=== PATIENT | female | born 1960 | race Caucasian/White ===

== ENCOUNTER 2023-08-30 15:32 | Emergency (ER) | payer OTHER, SELFPAY ==
[2023-08-30] VITALS (8 sets, daily range): BP systolic 136–189; BP diastolic 73–90; PULSE 58–68; RESP 18; TEMP 36.8–37; O2SAT 90–100; BMI 41.8
--- NOTE | 2023-08-30 16:01 | PC.NURSE ---
Pt has 5 laprascopic incisions on her abdomen after suergery 9 days ago. Pt has an area around each incision that is red and warm to touch. Pt also has an area on her left butt cheek that is red from a reaction to the soap they used for sugery.
--- NOTE | 2023-08-30 16:15 | ED.WOUNDLAC ---
HPI - Wound/Laceration General Chief Complaint: Wound/Laceration Stated Complaint: post marla T-9 wounds open/ abd area Time Seen by Provider: 08/30/23 15:56 History of Present Illness HPI narrative: Patient drove self here. Patient is postop day 9 status post urology/gynecological bladder surgery at [facility]. Patient complains of swelling to the incision sites with redness. Patient has had knee surgery before and no reactions to the incision sites on her knees. Patient is having good urinary and bowel function. She also has a wound to the left gluteal area. That was noticed after her surgery. Patient describes what sounds like cystocele surgery. She also had lysis of adhesions with the colon. Patient noticed these red fernandez over the incision sites about 3 days postop. Has not tried any medications for this. She is driving. She is allergic to contrast dye, I did offer IV contrast with Benadryl and Solu-Medrol but she declined because she is driving. Related Data Previous Rx's Medication Instructions Recorded doxycycline hyclate 100 mg capsule 100 mg PO BID #14 caps 08/30/23 Review of Systems Review of Systems Narrative: GENERAL: negative chills, fatigue, malaise, fever, sweats. HEENT: negative sinus pain, ear pain, sore throat RESPIRATORY: negative dyspnea, cough CARDIOVASCULAR: negative chest pain, palpitations GASTROINTESTINAL: negative nausea, vomiting, abdominal pain : negative dysuria, frequency, hematuria MUSCULOSKELETAL: negative muscle or bony pain SKIN: Positive rash, skin lesions NEUROLOGIC: negative weakness, numbness ROS Unobtainable: All systems reviewed & are unremarkable except as noted in HPI and below Patient History Social History Smoking Status: Never smoker Smoking Status: Never smoker alcohol intake frequency: 0-2 drinks per day Substance Use Type: does not use Exam Narrative Exam Narrative: GENERAL: in no distress, not toxic not dyspneic HEAD: Normocephalic. EYES: Pupils equal round GASTROINTESTINAL: Abdomen soft, mild tenderness to the incisional site. There are 5 of them. They are dry. No Steri-Strips overlying these incisions. At the right side there is incision that is clean and dry but has surrounding erythema edema and slightly more elevated than the rest. All of them do have erythema. No fluctuance. On the left gluteus there is an area 4 cm in diameter that is erythematous and appears to be slightly scabbed over. Possibly a contact dermatitis event that occurred intraoperatively. EXTREMITIES: No gross deformities. BACK: No flank tenderness. NEURO: AOx4. Clear speech SKIN: Warm and dry PSYCH: Not anxious, is cooperative Initial Vital Signs Initial Vital Signs: Vital Signs Temperature 98.3 F 08/30/23 15:37 Pulse Rate 66 08/30/23 15:37 Respiratory Rate 18 08/30/23 15:37 Blood Pressure 189/90 H 08/30/23 15:37 Pulse Oximetry 100 08/30/23 15:37 Oxygen Delivery Method Room Air 08/30/23 15:37 Course Orders Ordered: Discontinued Medications Doxycycline Hyclate (Doxycycline Hyclate 100 Mg Tablet) 100 mg PO NOW ONE Stop: 08/30/23 17:27 Last Admin: 08/30/23 17:39 Dose: 100 mg Documented By: CHUN Vital Signs Vital signs: Vital Signs - 8 hr 08/30/23 15:37 08/30/23 15:52 08/30/23 15:53 Temperature 98.3 F Pulse Rate 66 Respiratory Rate 18 Blood Pressure 189/90 H 136/76 Pulse Oximetry 100 90 L Oxygen Delivery Method Room Air 08/30/23 15:53 08/30/23 16:00 08/30/23 16:00 Temperature Pulse Rate 68 65 Respiratory Rate Blood Pressure 154/77 H Pulse Oximetry 99 100 Oxygen Delivery Method 08/30/23 16:31 08/30/23 17:00 Temperature Pulse Rate 67 62 Respiratory Rate Blood Pressure Pulse Oximetry 99 98 Oxygen Delivery Method MDM - Wound/Laceration Lab Data 08/30/23 16:41 08/30/23 16:41 Labs: Lab Results 08/30/23 08/30/23 Range/Units 16:20 16:41 WBC 5.5 (4.5-11.0) X10^3/uL RBC 3.72 L (4.0-5.2) X10^6/uL Hgb 11.5 L (12.0-16.0) g/dL Hct 33.5 L (36-46) % MCV 90.1 (80-100) fL MCH 30.8 (26-34) PG MCHC 34.2 (30-36) % RDW 15.2 H (11.6-14.8) % Plt Count 271 (150-400) X10^3/uL Neut % (Auto) 65.2 (50-75) % Lymph % (Auto) 19.5 L (25-40) % [place] % (Auto) 11.4 (3-14) % Eos % (Auto) 3.3 (2-4) % Baso % (Auto) 0.6 (0-2) % Neut # (Auto) 3600 (7572-4463) /uL Lymph # (Auto) 1100 (0493-7304) /uL [place] # (Auto) 600 (0-900) /uL Eos # (Auto) 200 (0-450) /uL Baso # (Auto) 0 (0-100) /uL Sodium 140 (137-145) mmol/L Potassium 3.5 (3.4-5.1) mmol/L Chloride 102 (98-107) mmol/L Carbon Dioxide 31 (22-32) mmol/L BUN 11 (7-17) mg/dL Creatinine 0.72 (0.52-1.04) mg/dL Estimated GFR > 60 (>60) mL/min BUN/Creatinine Ratio 15.3 (6-22) Glucose 111 H (80-110) mg/dL Calcium 9.2 (8.4-10.2) mg/dL Total Bilirubin 0.5 (0.2-1.3) mg/dL AST 33 (14-36) IU/L ALT 33 (<35) IU/L Alkaline Phosphatase 63 (38-126) U/L Total Protein 6.6 (6.3-8.2) g/dL Albumin 3.9 (3.5-5.0) g/dL Globulin 2.7 (1.7-4.1) g/dL Albumin/Globulin Ratio 1.4 (1.0-2.8) Urine RBC None seen (0-5/HPF) Urine WBC 5-10/hpf H (0-5/HPF) Ur Squamous Epith Cells 1-5 /hpf (0-5/HPF) Urine Bacteria Occasional (0-1) (None) Ur Culture Indicated? Specimen cultured Vol Urine Centrifuged 10ml (spun) Imaging Data CT scan - abdomen/pelvis: Radiologist's Impression: [address] [address] [address] Scan Report Signed Patient: Mar Simon MR#: [id number] : 1960 Acct:[id number] Age/Sex: 63 / F Date of Service: 08/30/23 Loc: ED Accession Number: [id number] Procedure: CT abdomen pelvis wo con Ordering Provider: Dorian Pride MD PROCEDURE: CT ABDOMEN PELVIS WO CON INDICATIONS: Abdominal wall lesions/postop incision swelling TECHNIQUE: Axial sections were acquired from the lung bases to the pubic symphysis. Coronal and sagittal reformats were performed. For radiation dose reduction, the following was used: automated exposure control, adjustment of mA and/or kV according to patient size. COMPARISON: None. FINDINGS: Image quality: Diagnostic. Lower Chest: No significant findings. URINARY: Right Kidney: No stones or hydronephrosis. Right Ureter: No hydroureter. Left Kidney: No stones or hydronephrosis. Left Ureter: No hydroureter. Bladder: Normal wall thickness. No stones. ABDOMEN: Liver: No contour-deforming solid mass. Gallbladder: No radiopaque gallstones or wall thickening. Biliary ducts: No biliary dilation. Pancreas: No ductal dilation. Spleen: Size is within normal limits. Adrenal Glands: No adrenal nodules. Stomach and Bowel: Normal colonic caliber, without significant wall thickening. Normal appendix. Peritoneum: Small amount of ascites. No free air. Ventral Wall: No hernia. Moderate diffuse subcutaneous fat stranding anteriorly. Abdominal Nodes: There is a 27 mm ovoid soft tissue density focus within the presacral fat at the S1 level. Vessels: Aorta and inferior vena cava are normal in size. PELVIS: Pelvic Organs: Unremarkable. Pelvic Nodes: Unremarkable. Miscellaneous: No inguinal hernias are seen. Bones: Unremarkable. IMPRESSION: 1. Subcutaneous edema versus cellulitis anteriorly. No focal fluid collection. 2. Presacral soft tissue density, possibly indicating adenopathy. Differential considerations include metastatic disease versus reactive adenopathy. 3. Normal appendix. 4. Small amount of ascites. Dictated by: Robby Lynch M.D. on 08/30/2023 at 16:39 Approved by: Robby Lynch M.D. on 08/30/2023 at 16:46 MDM Narrative Medical decision making narrative: Patient drove self here. Patient is postop day 9 status post urology/gynecological bladder surgery at [facility]. Patient complains of swelling to the incision sites with redness. Patient has had knee surgery before and no reactions to the incision sites on her knees. Patient is having good urinary and bowel function. She also has a wound to the left gluteal area. That was noticed after her surgery. Patient describes what sounds like cystocele surgery. She also had lysis of adhesions with the colon. Patient noticed these red fernandez over the incision sites about 3 days postop. Has not tried any medications for this. She is driving. She is allergic to contrast dye, I did offer IV contrast with Benadryl and Solu-Medrol but she declined because she is driving. After history and exam CBC CMP CT abdomen pelvis MDM CC: Incisional redness Complicating co-morbidities: Recent surgery Data collected from: Patient Medical records reviewed: No recent visit here for this complaint Differential considered: Includes but not limited to incisional hernia/cellulitis, incision infection, contact dermatitis Exam documented above, pertinent findings include: Erythema of the incision sites Lab Test results independently reviewed as above. Pertinent findings: WBC 5.5 hemoglobin 11.5 sodium 140 potassium 3.5 BUN 11 creatinine 0.72 urinalysis WBC 5-10 with occasional bacteria Imaging studies independently reviewed: CT abdomen pelvis subcutaneous edema versus cellulitis anteriorly. No fluid focal collection. Presacral soft tissue density possibly indicate adenopathy differential diagnosis/considerations include metastatic disease versus reactive adenopathy. Consultations: None indicated Treatments: Doxycycline Re-evaluations: 5:20 p.m.. Updated patient exam and laboratory and imaging results. She will need to follow up with primary care regarding the presacral soft tissue density. She understands needs MRI or repeat imaging/CT scan. Rule out metastatic/cancer process. She agrees with treatment plan with doxycycline. Return precautions reviewed. She does have a family doctor to follow up with. Not toxic at discharge. She desires discharge home Discussion: Appropriate for discharge home. Exam is reassuring as well as laboratory studies and imaging. At this time differential diagnosis includes but not limited to contact dermatitis and cellulitis/postop wound infections. Antibiotics have been started. Return precautions reviewed. She desires discharge home. Diagnosis: Cellulitis Discharge Plan Departure Patient Disposition: Home Clinical Impression: Cellulitis Qualifiers: Site of cellulitis: other site Qualified Code(s): L03.818 - Cellulitis of other sites Instructions: DI for Cellulitis -- Adult Activity Restrictions/Additional Instructions: Please see your surgeon next week for re-evaluation of your wound infections. Clean them daily with warm soap and water and apply a thin layer of topical antibiotic. 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 Please see your family doctor regarding CT scan findings on the sacral area. You may need MRI for better evaluation of this tissue around your sacrum. Return if worse if any questions or concerns Prescriptions: New doxycycline hyclate 100 mg capsule 100 mg PO BID Qty: 14 0RF Referrals: Miscellaneous,Doctor, MD [Primary Care Provider] - Stand Alone Forms: Patient Portal/API
[2023-08-30 16:32] LABS: Bacteria Urine Occasional (0-1); Culture Indicated Urine Specimen Cultured; RBC Urine None Seen (0-5/HPF); Squamous Epithelial Cell Urine 1-5 /HPF (0-5/HPF); Urine Volume 10mL (spun); WBC Urine 5-10/HPF (0-5/HPF)
[2023-08-30 16:51] LABS: Add Manual Diff / Slide Review NO; Basophils Absolute Auto 0 /uL (0-100); Basophils Percent Auto 0.6 % (0-2); Eosinophils Absolute Auto 200 /uL (0-450); Eosinophils Percent Auto 3.3 % (2-4); Hematocrit 33.5 % (36-46); Hemoglobin 11.5 g/dL (12.0-16.0); Lymphocytes Absolute Auto 1100 /uL (1100-4500); Lymphocytes Percent Auto 19.5 % (25-40); Mean Corpuscular HGB Conc 34.2 % (30-36); Mean Corpuscular Hemoglobin 30.8 PG (26-34); Mean Corpuscular Volume 90.1 fL (80-100); Monocytes Absolute Auto 600 /uL (0-900); Monocytes Percent Auto 11.4 % (3-14); Neutrophils Absolute Auto 3600 /uL (1500-7000); Neutrophils Percent Auto 65.2 % (50-75); Platelet Count 271 X10^3/uL (150-400); Red Blood Cell Count 3.72 X10^6/uL (4.0-5.2); Red Cell Distribution Width 15.2 % (11.6-14.8); White Blood Cell Count 5.5 X10^3/uL (4.5-11.0)
[2023-08-30 17:03] LABS: Alanine Aminotransferase 33 IU/L (<35); Albumin 3.9 g/dL (3.5-5.0); Albumin Globulin Ratio 1.4 (1.0-2.8); Alkaline Phosphatase 63 U/L (38-126); Aspartate Aminotransferase 33 IU/L (14-36); BUN Creatinine Ratio 15.3 (6-22); Bilirubin Total 0.5 mg/dL (0.2-1.3); Blood Urea Nitrogen 11 mg/dL (7-17); Calcium 9.2 mg/dL (8.4-10.2); Carbon Dioxide 31 mmol/L (22-32); Chloride 102 mmol/L (98-107); Estimated Glomerular Filt Rate > 60 mL/min (>60); Globulin 2.7 g/dL (1.7-4.1); Glucose 111 mg/dL (80-110); HEMOLYSIS < 15 (0-50); Potassium 3.5 mmol/L (3.4-5.1); Sodium 140 mmol/L (137-145); Total Protein 6.6 g/dL (6.3-8.2)
[2023-08-30] MEDS: DOXYCYCLINE HYCLATE 100 MG TABLET PO (17:39)
== END 2023-08-30 17:48 | disposition home or self-care (01) ==
PROVIDERS: Emergency Provider Emergency Medicine
DX: T81.49XA Infection following a procedure, other surgical site, initial encounter (principal); L03.311 Cellulitis of abdominal wall
CPT/HCPCS: 36415; 74176; 80053; 81003; 81015; 85025; 87086; 99284; Q9967